=== PATIENT | male | born 1995 | race African-American/Black ===

== ENCOUNTER 2018-05-11 19:51 | Emergency (ER) | payer MEDICAID ==
[~2018-05-11] VITALS: Ht 167.6 cm; Wt 75.0 kg
[2018-05-11 19:55] VITALS: BP 147/83
== END 2018-05-11 22:00 | disposition left against medical advice (07) ==
LOC: ER 19:51
DX: H57.10 Ocular pain, unspecified eye (principal); Z53.21 Procedure and treatment not carried out due to patient leaving prior to being seen by health care provider